=== PATIENT | female | born 1980 | race Caucasian/White ===

== ENCOUNTER 2019-09-12 06:09 | Observation (INO) | payer OTHER ==
[2019-09-12] VITALS (9 sets, daily range): BP systolic 133–162; BP diastolic 76–87
[~2019-09-12] VITALS: Ht 177.8 cm; Wt 113.0 kg
[~2019-09-12 06:09] MED LIST: AMLO5TAB4 PO; BIFI1CAP PO; CETI10TA22 PO; CHOL500016 PO; FERR325T14 PO; HYDR-3164 PO; METF500T16 PO; MULT-651 PO; NAPR-683 PO
[2019-09-12] MEDS ORDERED: HYDROmorphone 2 MG/ML VIAL IV PRN (07:00)
[2019-09-12] MEDS ORDERED: HYDR-2145 PO (07:00)
[2019-09-12] MEDS ORDERED: MORPHINE SULFATE 2 MG/ML VIAL. IV PRN (07:00)
[2019-09-12] MEDS ORDERED: ONDANSETRON PF 4 MG/2 ML VIAL. IV PRN ×2 (07:00→12:45)
[2019-09-12] MEDS ORDERED: PROCHLORPERAZINE 10 MG/2 ML VIAL. IV PRN ×2 (07:00→12:45)
[2019-09-12] MEDS ORDERED: IV RINGERS,LACTATED 1000ML 1,000 ML IV SCH (07:00)
[2019-09-12] MEDS ORDERED: ASPI81TA50 PO (07:00)
[2019-09-12] MEDS ORDERED: fentaNYL PF VIAL 100 MCG/2 ML VIAL IV PRN ×2 (07:00)
[2019-09-12] MEDS ORDERED: ESTROGENS, CONJ VAGINAL CREAM 30GM TUBE. ONE (07:25)
[2019-09-12] MEDS ORDERED: IOHEXOL 300 MG/ML 50 ML VIAL. ONE (07:25)
[2019-09-12] MEDS ORDERED: LIDOCAINE 1%/EPI 1:100,000 20 ML VIAL. ONE (07:25)
[2019-09-12] MEDS ORDERED: SURGICEL HEMOSTAT 4X8 EACH. ONE (07:25)
[2019-09-12] MEDS ORDERED: INDIGOTINDISULFONATE SODIUM 40 MG/5 ML AMPUL. ONE (07:25)
[2019-09-12 07:26] LABS: BASO % 1 % (0-3); EOS # 0.1 x10^3/uL (0.0-0.7); EOS % 2 % (0-3); HEMATOCRIT 42.7 % (36.0-47.0); HEMOGLOBIN 14.5 g/dL (12.0-15.5); LYMPH # 1.4 x10^3/uL (1.0-4.8); LYMPH % 23 % (24-48); MEAN CORPUSCULAR HEMOGLOBIN 30 pg (25-35); MEAN CORPUSCULAR HGB CONC 34 g/dL (31-37); MEAN CORPUSCULAR VOLUME 87 fL (79-100); MONO # 0.5 x10^3/uL (0.0-1.1); MONO % 9 % (0-9); NEUT # 4.1 x10^3/uL (1.8-7.7); NEUT % 66 % (31-73); PLATELET COUNT 213 x10^3/uL (140-400); RED BLOOD COUNT 4.92 x10^6/uL (3.50-5.40); WHITE BLOOD COUNT 6.2 x10^3/uL (4.0-11.0)
[2019-09-12] MEDS ORDERED: SCOPOLAMINE 1.5MG PATCH. TD SCH (07:30)
[2019-09-12] MEDS ORDERED: SEVOFLURANE > 120 MINUTES. IH ONE (07:37)
[2019-09-12] MEDS ORDERED: GLYCOPYRROLATE 1 MG/5 ML VIAL. ONE (07:37)
[2019-09-12] MEDS ORDERED: MIDAZOLAM HCL/PF 2 MG/2 ML VIAL. ONE (07:37)
[2019-09-12] MEDS ORDERED: fentaNYL PF VIAL 100 MCG/2 ML VIAL ONE ×2 (07:37→12:48)
[2019-09-12] MEDS ORDERED: NEOSTIGMINE METHYLSULFATE 5 MG/5 ML SYRINGE. ONE (07:38)
[2019-09-12] MEDS ORDERED: PROPOFOL 20 ML IV ONE (07:38)
[2019-09-12] MEDS ORDERED: KETOROLAC 30 MG/ML VIAL. ONE (07:38)
[2019-09-12] MEDS ORDERED: LIDOCAINE 2% PF 5 ML VIAL. ONE (07:38)
[2019-09-12] MEDS ORDERED: ROCURONIUM 50 MG/5 ML VIAL. ONE ×2 (07:38→10:18)
[2019-09-12] MEDS ORDERED: DEXAMETHASONE SOD PHOS 4 MG/ML VIAL ONE ×2 (07:38→09:35)
[2019-09-12] MEDS ORDERED: ONDANSETRON PF 4 MG/2 ML VIAL. ONE (07:38)
[2019-09-12 07:46] LABS: PROTHROMBIN TIME PATIENT 13.5 SEC (11.7-14.0)
[2019-09-12 07:53] LABS: CALCIUM 9.4 mg/dL (8.5-10.1); GFR 61.4
[2019-09-12 07:59] LABS: ALBUMIN 4.1 g/dL (3.4-5.0); TOTAL BILIRUBIN 0.4 mg/dL (0.2-1.0); TOTAL PROTEIN 8.4 g/dL (6.4-8.2)
[2019-09-12] MEDS ORDERED: BUPIVACAINE-EPI 0.25%-1:200000 MPF 30 ML VIAL. INJ ONE (08:00)
[2019-09-12] MEDS ORDERED: BUPIVACAINE-EPI 0.5%-1:200000 MPF 30 ML VIAL. INJ ONE (08:00)
[2019-09-12] MEDS ORDERED: ceFAZolin 2GM PREMIX 2 GM/50 ML BAG IV ONE (08:00)
[2019-09-12] MEDS ORDERED: ESMOLOL 100 MG/10 ML VIAL. IVP ONE (09:37)
[2019-09-12] MEDS ORDERED: KETAMINE HCL IN NACL, ISO-OSM 50 MG/5 ML SYRINGE ONE (09:37)
--- NOTE | 2019-09-12 10:09 | RAD ---
Study: CHOLANGIOGRAM INTRAOPERATIVE Indication: Intraoperative cholangiogram. Comparison: None. Findings: Two intraoperative radiographs are submitted. Fluoroscopy time: 2 seconds. Contrast is seen to fill a portion of the cystic duct as well as the common bile duct and the visualized central intrahepatic biliary tree. Contrast extends into the duodenum. No filling defect seen within the common bile duct. Two adjacent rounded radiodensities projecting at the right upper quadrant likely gallstones given the presence of two gallstones on the 07/04/2019 ultrasound. Impression: Two fluoroscopic radiographs in the setting of an intraoperative cholangiogram with observations as above. Electronically signed by: MARC REARDON MD (09/12/2019 10:06 AM) [id number]
--- NOTE | 2019-09-12 10:52 | PDOC ---
SURGICAL PROGRESS NOTE Subjective Op NOte: Surgeon........................................Jose Pre op diag...................................chronic cholecystitis and cholelithiasis Post op Diag.................................same Anesthesia...................................general Procedure.....................................Lap ismael with grams Blood loss....................................15cc Fluids...........................................see [id number] sheet Drains..........................................none Condition......................................satisfactory Vital Signs Vital Signs Date Time Temp Pulse Resp B/P (MAP) Pulse Ox O2 Delivery O2 Flow Rate FiO2 09/12/19 06:56 97.0 74 18 178/91 100 Room Air 97.0 Labs Laboratory Tests Test 09/12/19 06:29 09/12/19 06:48 Bedside Urine HCG, Qualitative Hcg negative (Negative) White Blood Count 6.2 x10^3/uL (4.0-11.0) Red Blood Count 4.92 x10^6/uL (3.50-5.40) Hemoglobin 14.5 g/dL (12.0-15.5) Hematocrit 42.7 % (36.0-47.0) Mean Corpuscular Volume 87 fL (79-100) Mean Corpuscular Hemoglobin 30 pg (25-35) Mean Corpuscular Hemoglobin Concent 34 g/dL (31-37) Red Cell Distribution Width 14.0 % (11.5-14.5) Platelet Count 213 x10^3/uL (140-400) Neutrophils (%) (Auto) 66 % (31-73) Lymphocytes (%) (Auto) 23 % (24-48) Monocytes (%) (Auto) 9 % (0-9) Eosinophils (%) (Auto) 2 % (0-3) Basophils (%) (Auto) 1 % (0-3) Neutrophils # (Auto) 4.1 x10^3/uL (1.8-7.7) Lymphocytes # (Auto) 1.4 x10^3/uL (1.0-4.8) Monocytes # (Auto) 0.5 x10^3/uL (0.0-1.1) Eosinophils # (Auto) 0.1 x10^3/uL (0.0-0.7) Basophils # (Auto) 0.0 x10^3/uL (0.0-0.2) Prothrombin Time 13.5 SEC (11.7-14.0) Prothromb Time International Ratio 1.1 (0.8-1.1) Sodium Level 139 mmol/L (136-145) Potassium Level 4.0 mmol/L (3.5-5.1) Chloride Level 102 mmol/L (98-107) Carbon Dioxide Level 27 mmol/L (21-32) Anion Gap 10 (6-14) Blood Urea Nitrogen 17 mg/dL (7-20) Creatinine 1.0 mg/dL (0.6-1.0) Estimated GFR (Cockcroft-Gault) 61.4 BUN/Creatinine Ratio 17 (6-20) Glucose Level 96 mg/dL (70-99) Calcium Level 9.4 mg/dL (8.5-10.1) Total Bilirubin 0.4 mg/dL (0.2-1.0) Aspartate Amino Transf (AST/SGOT) 18 U/L (15-37) Alanine Aminotransferase (ALT/SGPT) 16 U/L (14-59) Alkaline Phosphatase 73 U/L (46-116) Total Protein 8.4 g/dL (6.4-8.2) Albumin 4.1 g/dL (3.4-5.0) Albumin/Globulin Ratio 1.0 (1.0-1.7) Laboratory Tests Test 09/12/19 06:29 09/12/19 06:48 Bedside Urine HCG, Qualitative Hcg negative (Negative) White Blood Count 6.2 x10^3/uL (4.0-11.0) Red Blood Count 4.92 x10^6/uL (3.50-5.40) Hemoglobin 14.5 g/dL (12.0-15.5) Hematocrit 42.7 % (36.0-47.0) Mean Corpuscular Volume 87 fL (79-100) Mean Corpuscular Hemoglobin 30 pg (25-35) Mean Corpuscular Hemoglobin Concent 34 g/dL (31-37) Red Cell Distribution Width 14.0 % (11.5-14.5) Platelet Count 213 x10^3/uL (140-400) Neutrophils (%) (Auto) 66 % (31-73) Lymphocytes (%) (Auto) 23 % (24-48) Monocytes (%) (Auto) 9 % (0-9) Eosinophils (%) (Auto) 2 % (0-3) Basophils (%) (Auto) 1 % (0-3) Neutrophils # (Auto) 4.1 x10^3/uL (1.8-7.7) Lymphocytes # (Auto) 1.4 x10^3/uL (1.0-4.8) Monocytes # (Auto) 0.5 x10^3/uL (0.0-1.1) Eosinophils # (Auto) 0.1 x10^3/uL (0.0-0.7) Basophils # (Auto) 0.0 x10^3/uL (0.0-0.2) Prothrombin Time 13.5 SEC (11.7-14.0) Prothromb Time International Ratio 1.1 (0.8-1.1) Sodium Level 139 mmol/L (136-145) Potassium Level 4.0 mmol/L (3.5-5.1) Chloride Level 102 mmol/L (98-107) Carbon Dioxide Level 27 mmol/L (21-32) Anion Gap 10 (6-14) Blood Urea Nitrogen 17 mg/dL (7-20) Creatinine 1.0 mg/dL (0.6-1.0) Estimated GFR (Cockcroft-Gault) 61.4 BUN/Creatinine Ratio 17 (6-20) Glucose Level 96 mg/dL (70-99) Calcium Level 9.4 mg/dL (8.5-10.1) Total Bilirubin 0.4 mg/dL (0.2-1.0) Aspartate Amino Transf (AST/SGOT) 18 U/L (15-37) Alanine Aminotransferase (ALT/SGPT) 16 U/L (14-59) Alkaline Phosphatase 73 U/L (46-116) Total Protein 8.4 g/dL (6.4-8.2) Albumin 4.1 g/dL (3.4-5.0) Albumin/Globulin Ratio 1.0 (1.0-1.7) CALVIN WILEY MD Sep 12, 2019 10:52
[2019-09-12] MEDS ORDERED: KETOROLAC 15 MG/ML VIAL. IVP SCH (12:00)
--- NOTE | 2019-09-12 12:39 | PDOC ---
BRIEF OPERATIVE NOTE Date: Sep 12, 2019 Pre-Op Diagnosis 1. Fibroids 2. Dysmenorrhea 3. ROV Cyst Post-Op Diagnosis 1. Fibroids 2. Dysmenorrhea 3. VANESSA Cyst Procedure Performed LAVH & VANESSA Cystectomy Surgeon Dr. Parada Vegetable Harvest Machine Operator Bander Operator: Seamus Anesthesia Type: General Blood Loss 200 ml Specimens Obtained cervix, uterus and bilateral fallopian tubes and VANESSA cyst wall Findings enlarged fibroid uterus, VANESSA Cyst 4 cm, nml fallopian tubes shirley, nml ROV Complications none Operative Note see dictation DENIA PARADA Jr, MD Sep 12, 2019 12:38
[2019-09-12] MEDS ORDERED: ZOLPIDEM 5 MG TABLET. PO PRN (12:45)
[2019-09-12] MEDS ORDERED: DEXTROSE 50% 25 GM / 50ML DISP.SYRIN. IV PRN (12:45)
[2019-09-12] MEDS ORDERED: CALCIUM CARBONATE 500 MG TAB.CHEW PO PRN (12:45)
[2019-09-12] MEDS ORDERED: 0.9 % SODIUM CHLORIDE 10 ML DISP.SYRIN. IV PRN (12:45)
[2019-09-12] MEDS ORDERED: diphenhydrAMINE HCL 25 MG CAPSULE PO PRN (12:45)
[2019-09-12] MEDS ORDERED: diphenhydrAMINE 50 MG/ML VIAL IV PRN (12:45)
[2019-09-12] MEDS ORDERED: SIMETHICONE 80 MG TAB.CHEW PO PRN (12:45)
[2019-09-12] MEDS ORDERED: oxyCODONE/APAP 5/325 1 TAB TABLET PO PRN ×2 (12:45→21:15)
--- NOTE | 2019-09-12 13:29 | OP ---
DATE OF SURGERY: 09/12/2019 PREOPERATIVE DIAGNOSES: 1. Fibroids. 2. Dysmenorrhea. 3. Right ovarian cyst. POSTOPERATIVE DIAGNOSES: 1. Fibroids. 2. Dysmenorrhea. 3. Left ovarian cyst. PROCEDURE: Laparoscopic assisted vaginal hysterectomy and left ovarian cystectomy. SURGEON: Denia Parada MD ACCOUNTANT AUDITOR: Seamus. ANESTHESIA: GETA. ESTIMATED BLOOD LOSS: 200 mL. COMPLICATIONS: None. FINDINGS: Enlarged fibroid uterus, left ovarian cyst about 4 cm size, normal fallopian tubes bilaterally, normal right ovary. SUMMARY: A 39-year-old with history of fibroid uterus and dysmenorrhea. She also had a right ovarian cyst by pelvic sonogram. The patient was counseled on the risks, benefits and expectations of LAVH and right ovarian cystectomy. The patient was also having combination of surgery with Dr. Garcia due to gallstones for a cholecystectomy. Please see Dr. Garcia's note for details on the cholecystectomy portion which was performed initially. DESCRIPTION OF PROCEDURE: The patient was under anesthesia and was reprepped and draped in order to reposition for the LAVH portion. Wishon speculum was placed vaginally and the anterior lip of the cervix was grasped with single-tooth tenaculum. The EzFlop - A First of Its Kind Flip Flop uterine manipulator was then placed. The bivalve speculum was removed. Attention was now placed on abdomen. We utilized the infraumbilical incision site for the camera port, which was a 12 mm port. Two additional incisions were made in the left lower quadrant with a scalpel in which 5 mm trocars were placed. With the aid of graspers and the EnSeal, the right fallopian tube was dissected away from the pelvic sidewall and removed. Same process took place with left adnexa. There were some adhesions of abdominal wall and omentum that were removed. The right round ligament was coagulated and dissected. The right utero-ovarian pedicle was coagulated and dissected down to the uterine artery. Same process took place with left adnexa due to a lot of dense adhesions of the bladder and the uterus to the abdominal wall. These were taken down with the EnSeal and blunt dissection. Suction irrigation was utilized to verify good hemostasis. The left ovary demonstrated 4 cm ovarian cyst, which was excised and removed. Area was hemostatic. The right ovary appeared normal. We then proceeded vaginally. Weighted speculum and curved Richmond placed vaginally. Single-tooth tenaculum and Valtchev uterine manipulator were removed. Donna clamps were placed on the anterior and posterior lip of the cervix. The cervix was then injected with 1% lidocaine with epinephrine in circumferential manner. Bovie cautery was utilized to circumscribe the cervix. The vaginal mucosa was dissected away from the lower uterine segment using a moist Ray-Gilberto. The parametrial tissues were clamped bilaterally, cut, and suture ligated. Posterior cul-de-sacs were entered sharply with curved Leung scissors. The long weighted speculum was then placed. Anterior cul-de-sac was entered bluntly. Curved Pearl was repositioned. Uterosacral ligaments and cardinal ligaments were clamped bilaterally, cut, and suture ligated. The cervix and uterus were then removed. A modified Littlejohn's culdoplasty, incorporating the uterosacral ligaments bilaterally was performed. The remainder of the vaginal cuff was reapproximated using 2-0 Vicryl suture in [id number] manner. Moist vaginal packing was placed. Attention was once again placed abdominally. The abdomen was once again insufflated with 1.5 liters CO2 gas. The vaginal cuff was visualized and was hemostatic. This was verified with suction irrigation. The pedicles were all hemostatic as well. A small amount of normal saline was left in the posterior cul-de-sac. Trocars were removed under direct visualization. The abdomen was allowed to deflate as much as possible with mechanical manipulation. The 12 mm port was closed at the fascial layer using 2-0 Vicryl suture in [id number]-[id number] manner. All 6 incisions were closed at the skin layer using 4-0 Vicryl suture in subcuticular manner. A 0.25% Marcaine with epinephrine was injected at each incision site. The patient tolerated the procedure well and was taken to recovery room in stable condition. Sponge and needle count correct x 3. DENIA PARADA MD DR: KEILY/michael JOB#: [id number] / [id number]
[2019-09-12] MEDS ORDERED: GABAPENTIN 300 MG CAPSULE. PO SCH (14:00)
[2019-09-12] MEDS: KETOROLAC 30 MG/ML VIAL. IV PRN ×2 (16:20→22:48)
[2019-09-12] MEDS ORDERED: OPIUM/BELLADONNA 30/16.2MG SUPP.RECT. PR PRN (18:15)
[2019-09-12] MEDS ORDERED: IBUPROFEN 400 MG TABLET. PO PRN (18:15)
[2019-09-12] MEDS: ACETAMINOPHEN 500 MG TABLET PO PRN (18:19)
--- NOTE | 2019-09-12 19:42 | OP ---
DATE OF SURGERY: SURGEON: Benedicto Wiley MD PREOPERATIVE DIAGNOSES: Chronic cholecystitis and cholelithiasis. POSTOPERATIVE DIAGNOSES: Chronic cholecystitis and cholelithiasis. ANESTHESIA: General. PROCEDURE: Laparoscopic cholecystectomy with intraoperative cholangiogram. TECHNIQUE: Under general anesthesia, the patient was properly prepped and draped in routine fashion. She had had periodic gas, bloating and epigastric distress, was worked up and found to have gallstones and therefore she came to surgery. After being properly prepped and draped in routine fashion, we decided to place a trocar initially in the right upper quadrant. We did this because she had had lower abdominal surgery. As such, with the patient asleep and draped, we made a small incision with the 15 blade about 2-3 inches below the rib cage and the right upper quadrant. We carried, went through the skin. We pulled up with towel clips and then passed a Veress needle into the abdominal cavity and then put about 2-3 mL of saline and let it go in by gravity. We then insufflated the abdomen up to 15 with CO2 and then placed a 5 mm trocar. We then placed a 5 mm camera and to our surprise, there was minimal to no adhesions at the umbilicus. As such, we made an infraumbilical incision and carried this down through the skin and placed an 11 mm trocar there under direct visualization. We then removed the 5-mm camera, placed a 10 mm camera into the infraumbilical port and then placed the noncutting trocar in the epigastrium just to the right of the falciform ligament and then right abdomen laterally placed a 5 mm port. We then placed the patient in reverse Trendelenburg left side down and placed two atraumatic graspers into the right abdominal ports and the right angle dissector in the epigastric port. We then identified the gallbladder, grasped it at the fundus with the right lateral grasper, pushed up toward the right shoulder. We then were able to identify the anterior allograft tip of the right upper quadrant grasper and then pulling away some of the fat, identified the cystic duct. It was fairly small. As such, we encircled with a right angle and cleaned it off and then clipped it high on the gallbladder with 2 clips. We then using scissors, made a small incision in the duct and bile came out. We then through a needle placed the catheter with the dye and placed this into the abdomen and using the right angle grasper we then placed it over and put it into the cystic duct. This was clipped in place. Cholangiograms were done and the radiologist read a mass, did I and it was normal. Dye flowed freely into the hepatic radicals and into the duodenum with no filling defects or abnormalities. There did not appear to be any extravasation either. This having been done, we then removed the clip, removed the catheter and clipped the cystic duct 3 times on the patient's side. We then divided the cystic duct. We then slowly took some of the fat away. We were able to identify the cystic artery and encircled it. It was clipped 3 times on the patient's side and one from the gallbladder side and divided. Using a Harmonic scalpel, we then shelled the gallbladder out of gallbladder fossa, making certain not to injure the liver and we inspected the area once the gallbladder was almost removed and there were no bile leaks, no bleeding or other abnormalities at the hilum of the gallbladder out of bed. We then amputated the gallbladder from the liver tip. Using the EndoCatch basket through the umbilical trocar and placed a 5 mm trocar in the epigastric port. We followed this over and placed the gallbladder into the EndoCatch basket and released the graspers. The basket was shut and we then pulled the catheter, the gallbladder, EndoCatch basket and the trocar out of the patient, and luckily the gallbladder came out. We placed the trocar back in the area and insufflated the balloon, so that it would come out as this will be done for the second part of the procedure done by Dr. Parada. We then inspected the area. There was no further bleeding. We tried to aspirate some blood from the lateral liver, but there was almost none there at all. My portion of the procedure was terminated. The trocars were left in place as Dr. Parada will use some of these ports for his procedure. The blood loss during my portion was probably 10 mL at most. Fluids given can be obtained from the anesthesia sheet. No drains were used and the condition of the patient was satisfactory as she would have the remainder of the procedure, a gynecologic done. BENEDICTO WILEY MD DR: BENNETT/michael JOB#: [id number] / [id number]
[2019-09-12] MEDS ORDERED: BENZOCAINE/MENTHOL LOZENGE. PO PRN (20:30)
[2019-09-13] VITALS: BP 145/77
[2019-09-13 04:00] VITALS: BP 147/67
[2019-09-13 04:56] LABS: BASO % 0 % (0-3); EOS % 0 % (0-3); HEMATOCRIT 36.3 % (36.0-47.0); HEMOGLOBIN 12.4 g/dL (12.0-15.5); LYMPH % 9 % (24-48); MEAN CORPUSCULAR HEMOGLOBIN 30 pg (25-35); MEAN CORPUSCULAR HGB CONC 34 g/dL (31-37); MEAN CORPUSCULAR VOLUME 87 fL (79-100); MONO % 10 % (0-9); NEUT # 8.7 x10^3/uL (1.8-7.7); NEUT % 81 % (31-73); PLATELET COUNT 226 x10^3/uL (140-400); RED BLOOD COUNT 4.18 x10^6/uL (3.50-5.40); RED CELL DISTRIBUTION WIDTH 13.8 % (11.5-14.5); WHITE BLOOD COUNT 10.7 x10^3/uL (4.0-11.0)
[2019-09-13] MEDS: KETOROLAC 30 MG/ML VIAL. IV PRN ×2 (05:02→11:06)
[2019-09-13 05:03] LABS: CALCIUM 8.8 mg/dL (8.5-10.1); CREATININE 1.1 mg/dL (0.6-1.0); POTASSIUM 4.4 mmol/L (3.5-5.1)
[2019-09-13 05:08] LABS: ALBUMIN 3.4 g/dL (3.4-5.0); TOTAL BILIRUBIN 0.4 mg/dL (0.2-1.0); TOTAL PROTEIN 6.7 g/dL (6.4-8.2)
[2019-09-13] MEDS: ACETAMINOPHEN 500 MG TABLET PO PRN (08:01)
--- NOTE | 2019-09-13 08:22 | PDOC ---
SURGICAL PROGRESS NOTE Subjective POD#1 Doing well and taking liquids without problems. Diet per attending physician. Wounds without complication thus far as she has the normal post op incisional pain. No fever and lab normal with normal bilirubin and liver enzymes. From my standpoint she can be discharged but will defer to attending. I will se her in two weeks in office and she has been instructed on the binder and it's use and on taking Colace 100mg tid. and some form of fiber each day. Vital Signs Vital Signs Date Time Temp Pulse Resp B/P (MAP) Pulse Ox O2 Delivery O2 Flow Rate FiO2 09/13/19 04:00 98.6 18 147/67 (93) 96 Room Air 98.6 09/13/19 00:00 74 09/12/19 13:24 10 I&O Intake and Output 09/13/19 07:00 Intake Total 2450 ml Output Total 1195 ml Balance 1255 ml Intake Oral 600 ml IV Total 1850 ml Output Urine Total 995 ml Estimated Blood Loss 200 ml Labs Laboratory Tests Test 09/12/19 06:29 09/12/19 06:48 09/13/19 04:17 Bedside Urine HCG, Qualitative Hcg negative (Negative) White Blood Count 6.2 x10^3/uL (4.0-11.0) 10.7 x10^3/uL (4.0-11.0) Red Blood Count 4.92 x10^6/uL (3.50-5.40) 4.18 x10^6/uL (3.50-5.40) Hemoglobin 14.5 g/dL (12.0-15.5) 12.4 g/dL (12.0-15.5) Hematocrit 42.7 % (36.0-47.0) 36.3 % (36.0-47.0) Mean Corpuscular Volume 87 fL (79-100) 87 fL (79-100) Mean Corpuscular Hemoglobin 30 pg (25-35) 30 pg (25-35) Mean Corpuscular Hemoglobin Concent 34 g/dL (31-37) 34 g/dL (31-37) Red Cell Distribution Width 14.0 % (11.5-14.5) 13.8 % (11.5-14.5) Platelet Count 213 x10^3/uL (140-400) 226 x10^3/uL (140-400) Neutrophils (%) (Auto) 66 % (31-73) 81 % (31-73) Lymphocytes (%) (Auto) 23 % (24-48) 9 % (24-48) Monocytes (%) (Auto) 9 % (0-9) 10 % (0-9) Eosinophils (%) (Auto) 2 % (0-3) 0 % (0-3) Basophils (%) (Auto) 1 % (0-3) 0 % (0-3) Neutrophils # (Auto) 4.1 x10^3/uL (1.8-7.7) 8.7 x10^3/uL (1.8-7.7) Lymphocytes # (Auto) 1.4 x10^3/uL (1.0-4.8) 1.0 x10^3/uL (1.0-4.8) Monocytes # (Auto) 0.5 x10^3/uL (0.0-1.1) 1.0 x10^3/uL (0.0-1.1) Eosinophils # (Auto) 0.1 x10^3/uL (0.0-0.7) 0.0 x10^3/uL (0.0-0.7) Basophils # (Auto) 0.0 x10^3/uL (0.0-0.2) 0.0 x10^3/uL (0.0-0.2) Prothrombin Time 13.5 SEC (11.7-14.0) Prothromb Time International Ratio 1.1 (0.8-1.1) Sodium Level 139 mmol/L (136-145) 139 mmol/L (136-145) Potassium Level 4.0 mmol/L (3.5-5.1) 4.4 mmol/L (3.5-5.1) Chloride Level 102 mmol/L (98-107) 102 mmol/L (98-107) Carbon Dioxide Level 27 mmol/L (21-32) 26 mmol/L (21-32) Anion Gap 10 (6-14) 11 (6-14) Blood Urea Nitrogen 17 mg/dL (7-20) 23 mg/dL (7-20) Creatinine 1.0 mg/dL (0.6-1.0) 1.1 mg/dL (0.6-1.0) Estimated GFR (Cockcroft-Gault) 61.4 55.0 BUN/Creatinine Ratio 17 (6-20) 21 (6-20) Glucose Level 96 mg/dL (70-99) 115 mg/dL (70-99) Calcium Level 9.4 mg/dL (8.5-10.1) 8.8 mg/dL (8.5-10.1) Total Bilirubin 0.4 mg/dL (0.2-1.0) 0.4 mg/dL (0.2-1.0) Aspartate Amino Transf (AST/SGOT) 18 U/L (15-37) 20 U/L (15-37) Alanine Aminotransferase (ALT/SGPT) 16 U/L (14-59) 17 U/L (14-59) Alkaline Phosphatase 73 U/L (46-116) 62 U/L (46-116) Total Protein 8.4 g/dL (6.4-8.2) 6.7 g/dL (6.4-8.2) Albumin 4.1 g/dL (3.4-5.0) 3.4 g/dL (3.4-5.0) Albumin/Globulin Ratio 1.0 (1.0-1.7) 1.0 (1.0-1.7) Laboratory Tests Test 09/13/19 04:17 White Blood Count 10.7 x10^3/uL (4.0-11.0) Red Blood Count 4.18 x10^6/uL (3.50-5.40) Hemoglobin 12.4 g/dL (12.0-15.5) Hematocrit 36.3 % (36.0-47.0) Mean Corpuscular Volume 87 fL (79-100) Mean Corpuscular Hemoglobin 30 pg (25-35) Mean Corpuscular Hemoglobin Concent 34 g/dL (31-37) Red Cell Distribution Width 13.8 % (11.5-14.5) Platelet Count 226 x10^3/uL (140-400) Neutrophils (%) (Auto) 81 % (31-73) Lymphocytes (%) (Auto) 9 % (24-48) Monocytes (%) (Auto) 10 % (0-9) Eosinophils (%) (Auto) 0 % (0-3) Basophils (%) (Auto) 0 % (0-3) Neutrophils # (Auto) 8.7 x10^3/uL (1.8-7.7) Lymphocytes # (Auto) 1.0 x10^3/uL (1.0-4.8) Monocytes # (Auto) 1.0 x10^3/uL (0.0-1.1) Eosinophils # (Auto) 0.0 x10^3/uL (0.0-0.7) Basophils # (Auto) 0.0 x10^3/uL (0.0-0.2) Sodium Level 139 mmol/L (136-145) Potassium Level 4.4 mmol/L (3.5-5.1) Chloride Level 102 mmol/L (98-107) Carbon Dioxide Level 26 mmol/L (21-32) Anion Gap 11 (6-14) Blood Urea Nitrogen 23 mg/dL (7-20) Creatinine 1.1 mg/dL (0.6-1.0) Estimated GFR (Cockcroft-Gault) 55.0 BUN/Creatinine Ratio 21 (6-20) Glucose Level 115 mg/dL (70-99) Calcium Level 8.8 mg/dL (8.5-10.1) Total Bilirubin 0.4 mg/dL (0.2-1.0) Aspartate Amino Transf (AST/SGOT) 20 U/L (15-37) Alanine Aminotransferase (ALT/SGPT) 17 U/L (14-59) Alkaline Phosphatase 62 U/L (46-116) Total Protein 6.7 g/dL (6.4-8.2) Albumin 3.4 g/dL (3.4-5.0) Albumin/Globulin Ratio 1.0 (1.0-1.7) CALVIN WILEY MD Sep 13, 2019 08:22
[2019-09-13 09:45] VITALS: BP 150/82
--- NOTE | 2019-09-13 14:06 | PDOC ---
SURGICAL PROGRESS NOTE Subjective Pt. feeling well. Pain controlled. She is tolerating regular diet, ambulating and voiding without difficulty. Vital Signs Vital Signs Date Time Temp Pulse Resp B/P (MAP) Pulse Ox O2 Delivery O2 Flow Rate FiO2 09/13/19 09:45 98.9 70 16 150/82 (104) 98 Room Air 98.9 09/12/19 13:24 10 I&O Intake and Output 09/13/19 07:00 Intake Total 2450 ml Output Total 1195 ml Balance 1255 ml Intake Oral 600 ml IV Total 1850 ml Output Urine Total 995 ml Estimated Blood Loss 200 ml PATIENT HAS A BUSCH: No General: Alert, Oriented X3, Cooperative HEENT: Atraumatic Lungs: Clear to auscultation Heart: Regular rate Abdomen: Normal bowel sounds, Soft, No tenderness Extremities: No edema Psych/Mental Status: Mental status NL Labs Laboratory Tests Test 09/12/19 06:29 09/12/19 06:48 09/13/19 04:17 Bedside Urine HCG, Qualitative Hcg negative (Negative) White Blood Count 6.2 x10^3/uL (4.0-11.0) 10.7 x10^3/uL (4.0-11.0) Red Blood Count 4.92 x10^6/uL (3.50-5.40) 4.18 x10^6/uL (3.50-5.40) Hemoglobin 14.5 g/dL (12.0-15.5) 12.4 g/dL (12.0-15.5) Hematocrit 42.7 % (36.0-47.0) 36.3 % (36.0-47.0) Mean Corpuscular Volume 87 fL (79-100) 87 fL (79-100) Mean Corpuscular Hemoglobin 30 pg (25-35) 30 pg (25-35) Mean Corpuscular Hemoglobin Concent 34 g/dL (31-37) 34 g/dL (31-37) Red Cell Distribution Width 14.0 % (11.5-14.5) 13.8 % (11.5-14.5) Platelet Count 213 x10^3/uL (140-400) 226 x10^3/uL (140-400) Neutrophils (%) (Auto) 66 % (31-73) 81 % (31-73) Lymphocytes (%) (Auto) 23 % (24-48) 9 % (24-48) Monocytes (%) (Auto) 9 % (0-9) 10 % (0-9) Eosinophils (%) (Auto) 2 % (0-3) 0 % (0-3) Basophils (%) (Auto) 1 % (0-3) 0 % (0-3) Neutrophils # (Auto) 4.1 x10^3/uL (1.8-7.7) 8.7 x10^3/uL (1.8-7.7) Lymphocytes # (Auto) 1.4 x10^3/uL (1.0-4.8) 1.0 x10^3/uL (1.0-4.8) Monocytes # (Auto) 0.5 x10^3/uL (0.0-1.1) 1.0 x10^3/uL (0.0-1.1) Eosinophils # (Auto) 0.1 x10^3/uL (0.0-0.7) 0.0 x10^3/uL (0.0-0.7) Basophils # (Auto) 0.0 x10^3/uL (0.0-0.2) 0.0 x10^3/uL (0.0-0.2) Prothrombin Time 13.5 SEC (11.7-14.0) Prothromb Time International Ratio 1.1 (0.8-1.1) Sodium Level 139 mmol/L (136-145) 139 mmol/L (136-145) Potassium Level 4.0 mmol/L (3.5-5.1) 4.4 mmol/L (3.5-5.1) Chloride Level 102 mmol/L (98-107) 102 mmol/L (98-107) Carbon Dioxide Level 27 mmol/L (21-32) 26 mmol/L (21-32) Anion Gap 10 (6-14) 11 (6-14) Blood Urea Nitrogen 17 mg/dL (7-20) 23 mg/dL (7-20) Creatinine 1.0 mg/dL (0.6-1.0) 1.1 mg/dL (0.6-1.0) Estimated GFR (Cockcroft-Gault) 61.4 55.0 BUN/Creatinine Ratio 17 (6-20) 21 (6-20) Glucose Level 96 mg/dL (70-99) 115 mg/dL (70-99) Calcium Level 9.4 mg/dL (8.5-10.1) 8.8 mg/dL (8.5-10.1) Total Bilirubin 0.4 mg/dL (0.2-1.0) 0.4 mg/dL (0.2-1.0) Aspartate Amino Transf (AST/SGOT) 18 U/L (15-37) 20 U/L (15-37) Alanine Aminotransferase (ALT/SGPT) 16 U/L (14-59) 17 U/L (14-59) Alkaline Phosphatase 73 U/L (46-116) 62 U/L (46-116) Total Protein 8.4 g/dL (6.4-8.2) 6.7 g/dL (6.4-8.2) Albumin 4.1 g/dL (3.4-5.0) 3.4 g/dL (3.4-5.0) Albumin/Globulin Ratio 1.0 (1.0-1.7) 1.0 (1.0-1.7) Laboratory Tests Test 09/13/19 04:17 White Blood Count 10.7 x10^3/uL (4.0-11.0) Red Blood Count 4.18 x10^6/uL (3.50-5.40) Hemoglobin 12.4 g/dL (12.0-15.5) Hematocrit 36.3 % (36.0-47.0) Mean Corpuscular Volume 87 fL (79-100) Mean Corpuscular Hemoglobin 30 pg (25-35) Mean Corpuscular Hemoglobin Concent 34 g/dL (31-37) Red Cell Distribution Width 13.8 % (11.5-14.5) Platelet Count 226 x10^3/uL (140-400) Neutrophils (%) (Auto) 81 % (31-73) Lymphocytes (%) (Auto) 9 % (24-48) Monocytes (%) (Auto) 10 % (0-9) Eosinophils (%) (Auto) 0 % (0-3) Basophils (%) (Auto) 0 % (0-3) Neutrophils # (Auto) 8.7 x10^3/uL (1.8-7.7) Lymphocytes # (Auto) 1.0 x10^3/uL (1.0-4.8) Monocytes # (Auto) 1.0 x10^3/uL (0.0-1.1) Eosinophils # (Auto) 0.0 x10^3/uL (0.0-0.7) Basophils # (Auto) 0.0 x10^3/uL (0.0-0.2) Sodium Level 139 mmol/L (136-145) Potassium Level 4.4 mmol/L (3.5-5.1) Chloride Level 102 mmol/L (98-107) Carbon Dioxide Level 26 mmol/L (21-32) Anion Gap 11 (6-14) Blood Urea Nitrogen 23 mg/dL (7-20) Creatinine 1.1 mg/dL (0.6-1.0) Estimated GFR (Cockcroft-Gault) 55.0 BUN/Creatinine Ratio 21 (6-20) Glucose Level 115 mg/dL (70-99) Calcium Level 8.8 mg/dL (8.5-10.1) Total Bilirubin 0.4 mg/dL (0.2-1.0) Aspartate Amino Transf (AST/SGOT) 20 U/L (15-37) Alanine Aminotransferase (ALT/SGPT) 17 U/L (14-59) Alkaline Phosphatase 62 U/L (46-116) Total Protein 6.7 g/dL (6.4-8.2) Albumin 3.4 g/dL (3.4-5.0) Albumin/Globulin Ratio 1.0 (1.0-1.7) Assessment/Plan A: POD#1 s/p LAVH & VANESSA Cystectomy and Cholecystectomy P: D/c home. DENIA MOODY Jr, MD Sep 13, 2019 14:06
[2019-09-13] MEDS ORDERED: IBUP-1027 PO (14:09)
[2019-09-13] MEDS ORDERED: DOCU-109 PO (14:09)
[2019-09-13] MEDS ORDERED: ACET-704 PO (14:09)
--- NOTE | 2019-09-13 14:09 | DISCH ---
DISCHARGE INSTRUCTIONS Condition on Discharge Condition on Discharge: Stable Activity After Discharge Activity Instructions for Disc: Activity as tolerated Bathing Instructions: No Tub Bath until see Lifting Instructions after Dis: No heavy lifting, No pulling or pushing, Do not lift >10 pounds Exercise Instruction after Dis: Walk 30 min, 3 x per week Driving Instructions after Dis: Do not drive today, No driving for 2 weeks Weight Bearing Status after Di: Full weight bearing Diet after Discharge Diet after Discharge: Regular Checks after Discharge Checks after discharge: Check your Temp as needed Contacting the after DC Call your doctor for: Concerns you may have Follow-Up Follow up with: Dr. Parada in 2 wks DENIA PARADA Jr, MD Sep 13, 2019 14:09
[2019-09-13 15:11] VITALS: BP 156/80
--- NOTE | 2019-09-13 15:19 | NUR ---
Discharge Note: MCKAYLA NAVARRO Discharge instructions and discharge home medications reviewed with Patient and a copy given. All questions have been answered and understanding verbalized. The following instructions and handouts were given: Uterine Fibroid, Hysterectomy, Ovarian cyst, laparoscopic cholecystectomy, hysterectomy care after. Discontinued lines and drains: 22g peripheral IV removed from left wrist. Patient discharged to home with self-care via WC to private vehicle. Pt. with her at time of DC. Follow up appointments reviewed and abdominal binder applied.
--- NOTE | 2019-09-16 11:02 | PREOP HP ---
DATE OF SERVICE: 09/12/2019 HISTORY OF PRESENT ILLNESS: The patient comes in with a chief complaint of postprandial right upper quadrant pain and discomfort with pain in the left and the right abdomen. She has had sonogram of the gallbladder, which shows gallstones. The patient is seen for this. PAST MEDICAL HISTORY: Shows she has had 2 C-sections done in the distant past and also a number of benign skin tumors removed. She does have a bicuspid aortic valve and has had, I think, mini stroke from when she had preeclampsia or at least high blood pressure. This was about 6 years ago. She takes aspirin for that only. She does not have diabetes, but does have hypertension for which she takes medication. ALLERGIES: The patient has no allergies. FAMILY HISTORY: Very strong with the mother, aunts and other relatives all had gallstones and had surgery for the same. SOCIAL HISTORY: She also has 2 children as stated before per , alive and well. Socially, she does not smoke, drink or use illicit drugs. She is a high school home economics teacher. REVIEW OF SYSTEMS: Relative to the gallbladder is that stated in history of present illness. PHYSICAL EXAMINATION: GENERAL: Shows a mildly obese female in no acute distress. HEAD, EARS, EYES, NOSE AND THROAT: Grossly normal. CHEST: Clear bilaterally to auscultation. HEART: Had murmur heard loudest at the aortic area, probably a 3-4/6 magnitude and in the mitral valve ____ a little bit. The rate was 70 beats per minute and was regular. ABDOMEN: Soft, scar of previous C-sections was noted. There are no other scars on the abdomen. Deep palpation to the right upper quadrant did elicit some pain, but no guarding, rebound or peritoneal signs. No masses or organomegaly was noted. PELVIC: Not done. EXTREMITIES: Grossly normal. IMPRESSION: 1. Chronic cholecystitis and cholelithiasis. 2. Hypertension. 3. Gynecologic condition for which Dr. Parada has seen her. CALVIN WILEY MD DR: BENNETT/michael JOB#: [id number] / [id number]
--- NOTE | 2019-09-16 14:06 | PATHOLOGY ---
[facility] Accession Number: [id number] . 01 Material submitted: . PART A: gallbladder - GALLBLADDER AND CONTENTS PART B: ovary - LEFT OVARIAN CYST WALL. Modifiers: left, wall PART C: fallopian tube - RIGHT FALLOPIAN TUBE. Modifiers: right PART D: fallopian tube - LEFT FALLOPIAN TUBE. Modifiers: left PART E: uterus - CERVIX AND UTERUS . 01 Clinical history: . Fibroids, right ovarian cyst, cholelithiasis . 02 Diagnosis: A. Gallbladder "gallbladder and contents", cholecystectomy: - Moderate chronic cholecystitis with cholelithiasis. . B. Ovary "left ovarian cyst wall", partial oophorectomy: - Hemorrhagic corpus luteal cyst. - There is no evidence of malignancy. . C. Fallopian tube "right fallopian tube", salpingectomy: - Benign paratubal cyst. . D. Fallopian tube "left fallopian tube", salpingectomy: - Benign paratubal cyst. . E. Cervix and uterus "cervix and uterus", hysterectomy: - Chronic cervicitis with nabothian cysts. - Disordered proliferative phase endometrium without hyperplasia or malignancy. - Focus of superficial adenomyoses. - Leiomyoma measuring up to 0.6 cm in greatest dimension without any significant atypia, increased mitoses or necrosis. (SHA:[facility]; 09/16/2019) [facility] 09/16/2019 1010 Local . 02 Electronically signed: . Segundo Coon MD, Pathologist NPI- [id number] . 01 Gross description: . A. The specimen is received in formalin labeled "Zoe Mcmillan, gallbladder and contents" and consists of an intact green smooth and shiny gallbladder measuring 8.8 x 3.0 x 2.8 cm. The margin is inked black. Opening reveals a lumen filled with viscous green bile and 2 mulberry yellow-green calculi measuring 0.9 cm and 1.1 cm. The mucosa is green with extensive yellow stippling and an average wall thickness of 0.1 cm. No masses are identified. Adjacent the gallbladder neck is a lymph node measuring 0.8 cm Director Workforce Management sections are submitted in A1. . B. The specimen is received in formalin, labeled "Zoe Mcmillan, left ovarian cyst wall" and consists of 2 segments of yellow-johnson tissue measuring 0.8 x 0.7 x 0.3 cm and 0.9 x 0.6 x 0.3 cm which are entirely submitted in B1. . C. The specimen is received in formalin, labeled "Zoe Mcmillan, right fallopian tube" and consists of a fimbriated fallopian tube measuring 5.5 cm in length and up to 0.6 cm in diameter with a few paratubal cysts measuring up to 0.9 cm. The serosa is pink-johnson smooth shiny. Sectioning reveals a well-defined lumen. Director Workforce Management sections are submitted in C1. . D. The specimen is received in formalin, labeled "Zoe Mcmillan, left fallopian tube" and consists of a fimbriated fallopian tube measuring 4.4 cm in length and up to 0.5 cm in diameter. The serosa is pink-johnson smooth with a paratubal cyst measuring 0.7 cm. Sectioning reveals a well-defined lumen and hospital sales representative sections are submitted in D1. . E. The specimen is received in formalin, labeled "Zoe Mcmillan, cervix and uterus" and consists a 146 g uterus with attached cervix measuring 10.9 x 6.9 x 4.6 cm. The uterine serosa is pink-johnson smooth shiny. The slitlike 1.1 cm cervical os is surrounded by pink-johnson glistening to eroded ectocervical mucosa. It is bivalved revealing a pink-johnson corrugated endocervical canal measuring 3.3 cm in length. The endometrial cavity is triangular measuring 5.1 cm in length and 3.7 cm in width which is lined by a pink-red endometrium measuring 0.1 and 0.2 cm. The myometrium is pink-johnson and mildly trabeculated measuring up to 2.8 cm with a single intramural posterior ill-defined nodule measuring 0.6 cm. No additional nodules or mass lesions are identified. Director Workforce [employer] sections are submitted as follows: . E1: Anterior cervix E2: Posterior cervix E3: Anterior endomyometrium E4: Posterior endomyometrium (SDY; 09/13/2019) SYU/SYU 09/13/2019 0929 Local . 02 Pathologist provided ICD-10: K80.10, N83.8, N72, N83.12, N85.9, D25.9 . 02 CPT . 661893, [id number] Specimen Comment: A courtesy copy of this report has been sent to [phone], [phone] Specimen Comment: [id number], Specimen Comment: Report sent to , and Performed at: 01 [facility] [address] [facility] [address], [place] [id number] MD John Hylton MD Phone: [phone] Performed at: 02 [facility] [address] [place], [place] [id number] MD Tanner Lester MD Phone: [phone]
== END 2019-09-13 15:55 | disposition home or self-care (01) ==
LOC: SURG 06:09 → 3 NORTH 13:34
PROVIDERS: ADMIT Obstetrics & Gynecology; ATTEND Obstetrics & Gynecology
DX: D25.9 Leiomyoma of uterus, unspecified (principal); K80.00 Calculus of gallbladder with acute cholecystitis without obstruction; N83.201 Unspecified ovarian cyst, right side; N94.6 Dysmenorrhea, unspecified; I10 Essential (primary) hypertension
CPT/HCPCS: 36415; 47563; 58552; 74300; 80053; 81025; 85025; 85610; 86850; 86900; 86901; 88304; 88307; 96374; 96376; A7015; G0378; G0379; J0696; J0780; J1100; J1885; J2001; J2250; J2405; J2704; J2710; J3010; J3490; J7030; J7120; Q9967